=== PATIENT | male | born 2000 | race African-American/Black ===

== ENCOUNTER 2025-05-23 14:34 | Emergency (ER) | payer SELFPAY ==
--- NOTE | ~2025-05-23 | XR_ITS ---
EXAMINATION: XR CHEST CLINICAL INFORMATION: sob COMPARISON: None available. TECHNIQUE: 2 views of the chest were obtained. FINDINGS: No significant abnormality is noted involving the heart, lungs, mediastinum, bony thorax or soft tissues. XR/XR chest 2V IMPRESSION: No acute disease Electronically signed by: Maged Abreu MD 05/23/2025 03:42 PM EDT RP
--- NOTE | 2025-05-23 14:38 | ED.GENADULT ---
HPI - General Adult General Chief complaint: Dyspnea Stated complaint: sob Time Seen by Provider: 05/23/25 16:10 Source: patient Mode of arrival: ambulatory Limitations: language barrier History of Present Illness ED Provider: Dr. Milian HPI narrative: 24-year-old male presented hospital today for shortness of breath. Patient stated that happened last night. He is not currently having any shortness of breath at this time. Denies any cough fever or chest pain. No recent illness. No recent travel. The patient appears to be well on exam Related Data Allergies Allergy/AdvReac Type Severity Reaction Status Date / Time No Known Allergies Allergy Verified 05/23/25 14:50 Review of Systems Review of Systems: Pertinent review of systems as mentioned in HPI. All other system otherwise negative. [facility] Past Medical History [facility] Narrative: None Social History Social History Advance Directives: No Advance Directives Information Provided: No Physical Exam ED Exam Exam: General: Pleasant, no distress, interacting appropriately Head: Normacephalic, atraumatic ENT: oral mucosa moist, neck supple, no tracheal deviation Cardiovascular: regular rate, regular rhythm, no murmurs, rubbing, gallops Respiratory: CTAB, no wheeze, rales, rhonchi Neurological: Awake and alert, no facial droop noted Skin: Warm and dry Psychiatric: Appropriate mood and thoughts Vital Signs: Vital Signs - 24 hr 05/23/25 14:45 05/23/25 16:30 Temperature 98.4 F 98.4 F Pulse Rate 99 99 Respiratory Rate 16 16 Blood Pressure 132/76 132/76 Pulse Oximetry 100 100 Oxygen Delivery Method Room Air Room Air BMI result Body Mass Index 19.3 Course Course Course Narrative: Rapid medical screening exam was performed. Patient stable at time of evaluation. 24 yo male here for shortness of breath since last night. No chest pain no cough no recent illness. Opal Milian DO 05/23/25 1449 Medical Decision Making Medical Decision Making [facility] Narrative: 24-year-old male presented hospital today for evaluation of shortness of breath. No active shortness of breath no respiratory distress at this time. EKG did show some signs of right axis deviation. Normal sinus rhythm. Patient's chest x-ray is unremarkable. Patient's does not have any chest pain or shortness of breath currently. Do not think patient has an acute medical crisis. Patient will be discharged. Referral to primary care will be provided the patient. Differential Diagnosis Differential Diagnoses: The differential diagnosis associated with the presentation includes Pneumothorax, pneumonia, cardiac arrhythmia Lab Data MDM Lab Attestation statement: I reviewed the patient's lab results. Labs: Lab Results 05/23/25 Range/Units 14:56 COVID-19 (RAMON) Negative (Negative) COVID-19 Clin Com See Note Influenza Type A ([facility]O) Negative (Negative) Influenza Type B ([facility]O) Negative (Negative) Influenza A & B Note See Note Independent Interpretation I performed an independent interpretation of an: EKG and Plain X-Ray Radiology Impression Discussion of test interpretation with radiology: I have reviewed the radiologist's reading. Discharge Plan Discharge Clinical Impression: Breath shortness Patient Disposition: Home, Self-Care Referrals: [facility] [Provider Group, Internal Medicine] Interventions: ED Discharge Assessment Last Done: 05/23/25 16:30 Discharge Date/Time: 05/23/25 16:37 Print Language: Frank Chen
[2025-05-23 14:45] VITALS: BP 132/76; PULSE 99; RESP 16; TEMP 36.9; O2SAT 100; BMI 19.3
--- NOTE | 2025-05-23 14:50 | ECG_ITS ---
Test Reason : SOB Blood Pressure : */* mmHG Vent. Rate : 90 BPM Atrial Rate : 90 BPM P-R Int : 156 ms QRS Dur : 98 ms QT Int : 332 ms P-R-T Axes : 83 93 54 degrees QTcB Int : 406 ms Normal sinus rhythm Rightward axis Borderline ECG No previous ECGs available Referred By: Opal Milian Electronically Signed By: CLARKE QURESHI
[2025-05-23 15:22] LABS: COVID-19 Test Negative (Negative); IDNOW Serial# 55D5AD1C
[2025-05-23 15:26] LABS: IDNOW Serial# 58CA691E; Influenza B2 Negative (Negative)
[2025-05-23 16:30] VITALS: BP 132/76; PULSE 99; RESP 16; TEMP 36.9; O2SAT 100
== END 2025-05-23 16:37 | disposition home or self-care (01) ==
LOC: HO.ED 16:36
PROVIDERS: Emergency Provider Student in an Organized Health Care Education/Training Program
DX: R06.02 Shortness of breath (principal)
CPT/HCPCS: 71046; 87502; 87635; 93005; 99283

== ENCOUNTER → 2025-05-23 14:50 | Outpatient (BNV) | payer SELFPAY | PROVIDERS: Visit Provider Radiology Diagnostic Radiology | DX: R06.02 Shortness of breath (principal) | CPT/HCPCS: 71046 ==

== ENCOUNTER → 2025-05-23 14:50 | Outpatient (BNV) | payer SELFPAY | PROVIDERS: Emergency Provider Student in an Organized Health Care Education/Training Program; Visit Provider Internal Medicine | DX: R06.02 Shortness of breath (principal) | CPT/HCPCS: 93010 ==

== ENCOUNTER 2025-07-02 09:56 | Emergency (ER) | payer SELFPAY ==
[2025-07-02 09:59] VITALS: BP 129/69; PULSE 91; RESP 18; TEMP 36.7; O2SAT 100; BMI 19.3
--- NOTE | 2025-07-02 10:08 | PC.NURSE ---
[employer] Vel Baez [id number]
--- NOTE | 2025-07-02 11:35 | ED_ITS ---
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 patient states history of stye in the past. Patient denies any vision changes, nausea, vomiting, headache, fever, chills or any new trauma. Related Data Allergies Allergy/AdvReac Type Severity Reaction Status Date / Time No Known Allergies Allergy Verified 07/02/25 10:08 Review of Systems 2 Review of Systems: left eyelid lower stye Yes all other systems are reviewed and are negative [facility] Social History Social History Advance Directives: No Advance Directives Information Provided: No Do you have a plan to hurt others: No Plan Physical Exam ED Vital Signs: Vital Signs - 24 hr 07/02/25 09:59 Temperature 98.1 F Pulse Rate 91 Respiratory Rate 18 Blood Pressure 129/69 Pulse Oximetry 100 Oxygen Delivery Method Room Air BMI result Body Mass Index 19.3 Const General: cooperative, healthy appearing, comfortable, no acute distress, well developed, alert, awake and Physically active Orientation/consciousness: patient oriented x3 HENMT Head: Yes normal to inspection, Yes No palpable skull fracture present, Yes normocephalic and Yes atraumatic Eyes Other: Negative for signs of corneal abrasion, corneal ulcer, foreign body, glaucoma, herpes in the eye, or globe rupture General: appearance normal, both eyes and all related structures Visual Stroud: normal visual stroud by confrontation Alignment and Position: alignment normal Periorbital: periorbital findings normal Conjunctivae: conjunctivae normal Sclerae: sclerae normal Corneas: corneas normal Pupils: Equal, round and reactive pupils present Eyes/upper lids images: 2 1. Positive for stye. Rest of eye exam normal. Negative for photophobia, conjunctivitis, hyphema, subarachnoid hemorrhage, or discharge. Neck Neck: Yes normal visual inspection, Yes full ROM, Yes no lymphadenopathy, Yes no meningeal signs, Yes trachea midline, Yes supple, No anterior neck swelling and No tender Chest Chest palpation & inspection: normal inspection of the chest and normal palpation of entire chest wall Resp Effort & Inspection: normal respiratory effort and able to speak in complete sentences Auscultation: clear to auscultation bilaterally Cardio Jugular venous distension: no JVD Heart sounds: S1 normal heart sound present and S2 normal heart sound present GI Inspection: Yes normal to inspection Palpation (GI): Soft to palpation, not firm, nontender, no guarding and not rigid General: Yes no CVA tenderness Back/Spine/Pelvis Back: no CVA tenderness and No back tenderness Skin General skin exam: no rashes or lesions noted, elasticity normal and turgor normal Neuro General: patient oriented x3, gait normal, tone normal, moves all extremities, Normal light touch and pain sensation, no meningeal signs, no focal motor deficits, CN's II-XI intact bilaterally and normal sensation to monofilament Cranial nerves: Yes Equal, round and reactive pupils present Extrem General: Yes normal to inspection, Yes full ROM and Yes capillary refill normal Psych Appearance: grossly normal, well kempt and not disheveled Medical Decision Making Medical Decision Making [facility]DM Narrative: 25 year male presents to ED left lower eyelids discomfort. Physical exam shows stye. Not suspecting glaucoma, corneal abrasion, corneal ulcer, globe rupture, herpes in the eye, foreign body, abscess, or any other life-threatening etiology. Patient is educated on conservative treatment and informed he will need follow up with Ophthalmology for excision if no improvement. Patient explained worrisome signs informed return to the ED immediately Differential Diagnosis Differential Diagnoses: The differential diagnosis associated with the presentation includes ( periorbital cellulitis, she lays on foreign body, conjunctivitis) Admission/Observation Consideration of admission/observation: Escalation of care including admission/observation considered Independent Historian Clinical information obtained from an independent historian. History obtained from or confirmed by: Other (patient) Prescription Management I considered prescription management with: Pain Medication Discharge Plan Discharge Clinical Impression: Hordeolum externum (stye) Patient Disposition: Home, Self-Care Instructions: Stye (ED) Additional Instructions: recommend warm compress on eyelid with stye 4 times a day for 15 minutes. You will need follow up with Ophthalmology for re-evaluation and possible excision that is no improvement. Return to the ED immediately for any eye pain, change in vision, swelling of the eyelids, swelling of stye, headache, nausea, vomiting, fever, chills, any other concerning symptoms. you were given card for financial counselor information to help with bougie starting a health insurance. Please call Referrals: Lobito Alberto [Physician, Ophthalmology] - 2 days Referral Note: Chronic stye. May need excision Clinical Impression: Hordeolum externum (stye) Stand Alone Forms: Work/School Release Interventions: ED Discharge Assessment Last Done: 07/02/25 12:03 Discharge Date/Time: 07/02/25 12:04 Print Language: Frank Chen
[2025-07-02 12:03] VITALS: BP 129/69; PULSE 91; RESP 18; TEMP 36.7; O2SAT 100
== END 2025-07-02 12:04 | disposition home or self-care (01) ==
PROVIDERS: Emergency Provider Student in an Organized Health Care Education/Training Program
DX: H00.015 Hordeolum externum left lower eyelid (principal)
CPT/HCPCS: 99282